=== PATIENT | male | born 1990 | race Caucasian/White ===

== ENCOUNTER 2020-04-10 22:25 | Emergency (ER) | payer BC ==
[2020-04-10 22:58] VITALS: BP 125/81; PULSE 91
--- NOTE | 2020-04-11 08:55 | EDM.PDOC ---
ED HPI GENERAL MEDICAL PROBLEM - General Chief Complaint: Laceration Stated Complaint: LACERATION TO THUMB Time Seen by Provider: 04/10/20 22:45 History Limitations: Reports: No Limitations - History of Present Illness INITIAL COMMENTS - FREE TEXT/NARRATIVE: Pt. sustained laceration to posterior aspect of thumb with a knife. Pt. states that his tetanus is up to date. Denies any difficulty moving the extremity. No numbness/tingling in the distal portion of the extremity. Onset Date: 04/10/20 Location: Reports: Upper Extremity, Right Treatments REHEATER: Reports: Other (see below) Other Treatments REHEATER: pressure Right thumb Pain Score (Numeric/FACES): 6 - Related Data Allergies Allergy/AdvReac Type Severity Reaction Status Date / Time amoxicillin Allergy Rash Verified 04/10/20 22:58 Home Meds: Home Meds . [No Known Home Meds] 04/10/20 [History] Past Medical History - Past Health History Medical/Surgical History: Denies Medical/Surgical History Social & Family History - Tobacco Use Tobacco Use Status *Q: Unknown Ever Used Tobacco ED ROS GENERAL - Review of Systems Review Of Systems: Comprehensive ROS is negative, except as noted in HPI. ED EXAM, GENERAL - Physical Exam Exam: See Below Exam Limited By: No Limitations General Appearance: Alert, WD/WN, No Apparent Distress Extremities: Other (3 cm semicircular laceration/avulsion noted to thumb overlying the MCP joint. No obvious trauma to the extensor tendons/underlying structures of the hand. CMS intact. ROM is within normal limits. ) ED GENERAL MEDICAL PROCEDURES - Laceration/Wound Repair Right Posterior Digit - 1st (Thumb) Appearance: Subcutaneous, Stellate, Clean, Other (semicirular) Distal NVT: Neuro & Vascular Intact, No Tendon Injury Anesthetic Type: Local Local Anesthesia - Lidocaine (Xylocaine): 1% Plain Local Anesthetic Volume: 3cc Skin Prep: Chlorhexidine (Hibiciens), Saline Exploration/Debridement/Repair: Wound Explored Closed with: Sutures Suture Size: 4-0 # of Sutures: 3 Suture Type: Nylon Course - Vital Signs Last Recorded V/S: Last Vital Signs Temp 35 C L 04/10/20 22:25 Pulse 91 04/10/20 22:25 Resp 16 04/10/20 22:25 BP 125/81 04/10/20 22:25 Pulse Ox - Orders/Labs/Meds Meds: Medications Discontinued Medications Generic Name Dose Route Start Last Admin Trade Name Sarah PRN Reason Stop Dose Admin Lidocaine HCl 5 ml 04/10/20 22:48 04/10/20 22:55 Xylocaine-Mpf 1% INJECT 04/10/20 22:49 2.5 ml ONETIME ONE Administration Departure - Departure Time of Disposition: 23:30 Disposition: Home, Self-Care 01 Clinical Impression: Laceration - Discharge Information Instructions: Laceration Care, Adult Referrals: Caesar Barnard NP [Primary Care Provider] - Forms: ED Department Discharge Additional Instructions: Keep dry for 48 hours. Do not submerge for a long period of time until all the edges or the laceration are healing. Return to ER if there is any redness, swelling, or discharge from the area. Sutures out in clinic in 12 days. Sepsis Event Note (ED) - Evaluation Sepsis Screening Result: No Definite Risk - Focused Exam Vital Signs: Vital Signs Temp Pulse Resp BP 04/10/20 22:25 35 C L 91 16 125/81 - Assessment/Plan Plan: Keep dry for 48 hours. Do not submerge for a long period of time until all the edges or the laceration are healing. Return to ER if there is any redness, swelling, or discharge from the area. Sutures out in clinic in 12 days.
== END 2020-04-10 23:11 | disposition home or self-care (01) ==
LOC: VM.ED 22:25
DX: S61.011A Laceration without foreign body of right thumb without damage to nail, initial encounter (principal); Z88.1 Allergy status to other antibiotic agents; W26.0XXA Contact with knife, initial encounter
CPT/HCPCS: 12002; 99282; 99283; J2001

== ENCOUNTER 2020-11-22 21:32 | Emergency (ER) | payer BC, OTHER ==
[2020-11-22] MEDS ORDERED: Ketorolac 30 MG/ML SDV IM ONE (21:41)
--- NOTE | 2020-11-22 21:49 | EDM.PDOC ---
ED HPI GENERAL MEDICAL PROBLEM - General Time Seen by Provider: 11/22/20 21:40 Source of Information: Reports: RN Notes Reviewed - History of Present Illness INITIAL COMMENTS - FREE TEXT/NARRATIVE: Grey is a 30 y/o male who presents to the ER via POV with right foot pain. He reports that he was running to catch his dog and he stepped in a rabbit hole. The foot hurts to bear weight on it. Rates the pain 3/10 at rest and 7/10 with any movement. Has not taken anything for pain. No previous injury. - Related Data Allergies Allergy/AdvReac Type Severity Reaction Status Date / Time amoxicillin Allergy Rash Verified 04/10/20 22:58 Home Meds: Home Meds Hydrocodone/Acetaminophen [Hydrocodone-Acetamin 10-325 mg] 1 - 2 each PO Q6HR PRN #30 tablet 11/22/20 [Rx] Past Medical History - Past Health History Medical/Surgical History: Denies Medical/Surgical History Review of Systems - Review of Systems Review Of Systems: See Below Constitutional: Reports: No Symptoms Ears: Reports: No Symptoms Nose: Reports: No Symptoms Mouth/Throat: Reports: No Symptoms Respiratory: Reports: No Symptoms Cardiovascular: Reports: No Symptoms GI/Abdominal: Reports: No Symptoms Genitourinary: Reports: No Symptoms Musculoskeletal: Reports: Foot Pain (right foot/right great toe) Skin: Reports: No Symptoms Neurological: Reports: No Symptoms Psychiatric: Reports: No Symptoms ED EXAM, GENERAL - Physical Exam Exam: See Below General Appearance: Alert, WD/WN, No Apparent Distress (Adult male) Ears: Hearing Grossly Normal Throat/Mouth: Normal Voice Head: Atraumatic, Normocephalic Respiratory/Chest: No Respiratory Distress Cardiovascular: Regular Rate, Rhythm GI/Abdominal: Soft (Male) Exam: Deferred Rectal (Males) Exam: Deferred Extremities: Normal Capillary Refill, Other (Note mild swelling and redness to the anterior part of the right foot and very tender at the distal 1st metatarsal head) Neurological: Alert, Oriented, CN II-XII Intact Psychiatric: Normal Affect, Normal Mood Skin Exam: Warm, Dry, Intact, Normal Color Course - Vital Signs Text/Narrative:: 2143 The patient was seen by the SENIOR PHP DEVELOPER. Xray ordered. He was given Toradol 30mg IM for pain. 2209 Xray reviewed, note proximal phalanges fx of 1st toe in right foot, CAM walking boot applied to right lower leg. He was given discharge instructions and left the ER in stable condition. - Orders/Labs/Meds Orders: Active Orders 24 hr Category Date Time Status Foot Comp Min 3V Rt [CR] Stat Exams 11/22/20 21:42 Taken Meds: Medications Discontinued Medications Generic Name Dose Route Start Last Admin Trade Name Freq PRN Reason Stop Dose Admin Ketorolac Tromethamine 30 mg 11/22/20 21:41 Ketorolac 30 Mg/Ml Sdv IM 11/22/20 21:42 ONETIME ONE - Radiology Interpretation Free Text/Narrative:: XR Right Foot-note comminuted proximal phalanges of 1st toe on right foot (awaiting final report) Departure - Departure Time of Disposition: 22:25 Disposition: Home, Self-Care 01 Condition: Good Clinical Impression: Fracture of proximal phalanx of right great toe Qualifiers: Encounter type: initial encounter Fracture type: closed Fracture alignment: nondisplaced Qualified Code(s): S92.414A - Nondisplaced fracture of proximal phalanx of right great toe, initial encounter for closed fracture - Discharge Information *PRESCRIPTION DRUG MONITORING PROGRAM REVIEWED*: No *COPY OF PRESCRIPTION DRUG MONITORING REPORT IN PATIENT SPENCER: No Prescriptions: Hydrocodone/Acetaminophen [Hydrocodone-Acetamin 10-325 mg] 1 - 2 each PO Q6HR PRN #30 tablet PRN Reason: Pain (Moderate 4-6) Instructions: Toe Fracture Rehab-[facility] Additional Instructions: -Ibuprofen 400mg oral every 6 hours as needed -Hydrocodone/APAP 5/325mg 1-2 tablets every 4-6 hours as needed for pain #5(Rx) #30(Rx) -Walking boot as instructed and elevate extremity as much as able -Use crutches as instructed. No weight bearing until seen by Ortho. -Apply ice as able -If symptoms are not improving as expected, return to your Primary Care Provider for further care. You may also fgo directly to Ortho Urgent to be seen. -Return to the ER as needed for any concerns - My Orders Last 24 Hours: My Active Orders 11/22/20 21:42 Foot Comp Min 3V Rt [CR] Stat - Assessment/Plan Last 24 Hours: My Active Orders 11/22/20 21:42 Foot Comp Min 3V Rt [CR] Stat Assessment:: 1)Right Great Toe Proximal Phalanges Fx Plan: As above
[2020-11-22] MEDS ORDERED: Take Home: Acetaminophen/HYDROcodone 325-5 MG, 5 Tab Pack PO ONE (22:17)
[2020-11-23 02:56] VITALS: BP 107/75; PULSE 79
--- NOTE | 2020-11-23 06:22 | CR ---
[id number] RAD/RAD Foot Right 3V Min Exam: RAD Foot Right 3V Min Indication:STEPPED IN A HOLE, ANTERIOR FOOT AND BIG TOE PAIN Comparison: No prior imaging for comparison. Discussion/Impression: Acute comminuted slightly displaced and angulated fracture of the 1st digit proximal phalanx. One of the fracture lines an oblique view may extend through the subchondral endplate at the interphalangeal articulation. No significant cortical step-off or separation at the articular surface. Interphalangeal articulation remains in normal alignment. In addition there is hallux valgus addition to valgus angulation of the 2nd through 4th MTP articulations as well. Winston Mar MD 11/23/20 0621 Thank you for allowing us to participate in the care of your patient.
== END 2020-11-22 22:45 | disposition home or self-care (01) ==
LOC: VM.ED 21:32
DX: S92.414A Nondisplaced fracture of proximal phalanx of right great toe, initial encounter for closed fracture (principal); Z88.0 Allergy status to penicillin; W54.8XXA Other contact with dog, initial encounter; Y93.02 Activity, running
CPT/HCPCS: 73630-RT; 96372; 99283; 99283-25; A9270-GY; J1885

== ENCOUNTER 2021-09-16 06:04 | Emergency (ER) | payer BC ==
[2021-09-16] MEDS ORDERED: Lactated Ringers 1,000 ML IV ONE (06:12)
[2021-09-16] MEDS ORDERED: Sodium Chloride 0.9% 10 ML Syringe FLUSH PRN (06:25)
[2021-09-16 07:08] LABS: ACETAMINOPHEN 30 ug/ml (10-30); CHLORIDE,CL 99 mmol/L (98-107); SODIUM,NA 139 mmol/L (136-145)
[2021-09-16 07:09] LABS: ANION GAP 22.5 mmol/L (5-15)
[2021-09-16] MEDS: Potassium Chloride Riders 10 MEQ in Premix Bag 1 BAG IV SCH ×3 (07:34→09:55)
[2021-09-16 09:56] VITALS: BP 100/51; PULSE 89
[2021-09-16] MEDS ORDERED: Potassium Chloride Riders 10 MEQ in Premix Bag 1 BAG IV ONE (11:10)
[2021-09-16] MEDS ORDERED: Sodium Chloride 0.9% 1,000 ML IV SCH (11:15)
[2021-09-16 11:41] LABS: ACETAMINOPHEN 12 ug/ml (10-30); CHLORIDE,CL 103 mmol/L (98-107); SODIUM,NA 137 mmol/L (136-145)
[2021-09-16 11:52] LABS: ANION GAP 17.6 mmol/L (5-15)
== END 2021-09-16 11:55 | disposition short-term general hospital (02) ==
LOC: VM.ED 06:04
DX: T43.212A Poisoning by selective serotonin and norepinephrine reuptake inhibitors, intentional self-harm, initial encounter (principal); T40.2X2A Poisoning by other opioids, intentional self-harm, initial encounter; E87.6 Hypokalemia; Z88.0 Allergy status to penicillin; Z20.822 Contact with and (suspected) exposure to COVID-19
CPT/HCPCS: 36415; 80048; 80053; 80143; 80179; 80307; 83735; 85025; 86140; 93005; 93010; 96365; 96366; 96376; 99285; 99285-25; J3480; J7030; J7120; U0002

== ENCOUNTER 2024-06-14 19:51 | Emergency (ER) | payer BC ==
[2024-06-14] MEDS ORDERED: Sodium Chloride 0.9% 10 ML Syringe FLUSH PRN (19:59)
[2024-06-14 20:14] LABS: BASOPHILS PERCENT AUTO 0.3 % (0.2-1.2); EOSINOPHILS ABSOLUTE AUTO 0.4 x10^3/uL (0.0-0.5); EOSINOPHILS PERCENT AUTO 3.8 % (0.0-4.0); HEMATOCRIT 48.4 % (40.0-52.0); HEMOGLOBIN 17.5 g/dL (14.0-18.0); IMMATURE GRAN ABSOLUTE AUTO 0.01 x10^3/uL (0.00-0.07); LYMPHOCYTES ABSOLUTE AUTO 4.1 x10^3/uL (1.0-4.8); LYMPHOCYTES PERCENT AUTO 39.3 % (25.0-50.0); MEAN CORPUSCULAR HEMOGLOBIN 32.2 pg (26.0-32.0); MEAN CORPUSCULAR HGB CONC 36.2 g/dL (32.0-36.0); MEAN CORPUSCULAR VOLUME 89.1 fL (78.0-93.0); MONOCYTES ABSOLUTE AUTO 0.7 x10^3/uL (0.0-0.8); MONOCYTES PERCENT AUTO 6.3 % (2.0-11.0); NEUTROPHILS ABSOLUTE AUTO 5.2 x10^3/uL (1.8-7.7); NEUTROPHILS PERCENT AUTO 50.2 % (50.0-80.0); PLATELET COUNT,PLT 262 x10^3/uL (130-400); RED BLOOD CELL COUNT 5.43 x10^6/uL (4.5-6.0); WHITE BLOOD CELL COUNT,WBC 10.5 x10^3/uL (4.0-10.0)
[2024-06-14 20:41] LABS: A/G RATIO 1.32; ALANINE AMINOTRANSFERASE,ALT 44 U/L (16-63); ALBUMIN 4.5 g/dL (3.4-5.0); ALKALINE PHOSPHATASE 70 U/L (46-116); ANION GAP 16.7 mmol/L (5-15); ASPARTATE AMNIOTRANSFERASE,AST 19 U/L (15-37); BILIRUBIN TOTAL 0.7 mg/dL (0.2-1.0); BLOOD UREA NITROGEN,BUN 22 mg/dL (7-18); CALCIUM 10.2 mg/dL (8.5-10.1); CARBON DIOXIDE,CO2 25 mmol/L (21-32); CHLORIDE,CL 102 mmol/L (98-107); CREATINE KINASE,CK 133 U/L (39-308); ESTIMATED GFR 103 mL/min (>=60); GLUCOSE RANDOM 109 mg/dL (70-99); POTASSIUM,K 3.7 mmol/L (3.5-5.1); PROTEIN TOTAL,TP 7.9 g/dL (6.4-8.2); SODIUM,NA 140 mmol/L (136-145)
[2024-06-14] MEDS: Iopamidol 755 Mg/ML 100 ML Bottle IVPUSH ONE (21:28)
[2024-06-14 22:06] VITALS: BP 108/75; PULSE 89
[2024-06-14] MEDS: predniSONE 20 MG Tab PO ONE (22:47)
[2024-06-15] MEDS ORDERED: predniSONE 20 MG Tab PO ONE (22:38)
== END 2024-06-14 22:54 | disposition home or self-care (01) ==
LOC: VM.ED 19:51
DX: R20.0 Anesthesia of skin (principal); Z88.0 Allergy status to penicillin; Z79.52 Long term (current) use of systemic steroids
CPT/HCPCS: 70450; 70496; 80053; 82550; 84484; 85025; 93005; 99284; J7512; Q9967